=== PATIENT | male | born 1985 | race Caucasian/White ===

== ENCOUNTER 2021-01-03 18:31 | Emergency (ER) | payer OTHER ==
[2021-01-03 18:46] VITALS: BP 145/80
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
--- NOTE | 2021-01-03 19:26 | XRAY Report ---
PROCEDURE: Finger(s) RT INDICATIONS: Trauma TECHNIQUE: AP hand, 3 views of the right third finger(s) acquired. COMPARISON: None FINDINGS: Bones: No fractures or dislocations. No suspicious bony lesions. Soft tissues: No suspicious soft tissue calcifications. IMPRESSION: No fracture. No osseous lesion. If there are persistent symptoms or continued clinical concern for pa thology, then repeat plain film radiographs (7-10 days) or advanced imaging (CT, MR, bone scan) shoul d be considered for further evaluation. Reviewed by: Latrice Steiner MD, PhD on 01/03/2021 7:24 PM PDT Approved by: Latrice Steiner MD, PhD on 01/03/2021 7:24 PM PDT Station ID: [email or web address]
== END 2021-01-03 20:06 | disposition home or self-care (01) ==
LOC: ED 18:31
DX: S60.131A Contusion of right middle finger with damage to nail, initial encounter (principal); W23.0XXA Caught, crushed, jammed, or pinched between moving objects, initial encounter; Y93.89 Activity, other specified; Y99.0 Civilian activity done for income or pay
CPT/HCPCS: 11740; 99282; 99283

== ENCOUNTER 2022-08-19 19:51 | Emergency (ER) | payer OTHER ==
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
[2022-08-19 20:08] VITALS: BP 130/90
== END 2022-08-19 20:06 | disposition home or self-care (01) ==
LOC: ED 19:51
DX: T65.891A Toxic effect of other specified substances, accidental (unintentional), initial encounter (principal); T65.91XA Toxic effect of unspecified substance, accidental (unintentional), initial encounter
CPT/HCPCS: 99281; 99283

== ENCOUNTER 2023-01-20 08:52 | Outpatient (CLI) | payer OTHER ==
[2023-01-20 12:27] LABS: HCT - HEMATOCRIT 46.5 % (42.0-52.0); HGB - HEMOGLOBIN 16.4 g/dL (14.0-18.0); MEAN CORPUSCULAR HEMOGLOBIN 29.1 pg (27.0-31.0); MEAN CORPUSCULAR HGB CONC 35.3 g/dL (32.0-36.0); MEAN CORPUSCULAR VOLUME 82.4 fL (80.0-94.0); MEAN PLATELET VOLUME 9.6 fL (7.4-11.4); RED BLOOD COUNT 5.64 10^6/uL (4.70-6.10); RED CELL DISTRIBUTION WIDTH 12.8 % (12.0-15.0); WHITE BLOOD COUNT 11.4 x10^3/uL (4.8-10.8)
[2023-01-20 12:36] LABS: ESTIMATED AVERAGE GLUCOSE 97 mg/dL (70-100)
[2023-01-20 12:41] LABS: ALBUMIN 4.7 g/dL (3.2-5.5); ALBUMIN/GLOBULIN RATIO 1.3 (1.0-2.2); ALKALINE PHOSPHATASE 75 IU/L (42-121); ALT ALANINE AMINOTRANSFERASE 48 IU/L (10-60); AST ASPARTATE AMINOTRANSFERASE 60 IU/L (10-42); BUN - BLOOD UREA NITROGEN 12 mg/dL (6-20); CARBON DIOXIDE - CO2 30 mmol/L (21-32); CHLORIDE 103 mmol/L (101-111); CHOL/HDL RATIO 3.7 (<5.0); CHOLESTEROL 146 mg/dL; CREATININE 0.9 mg/dL (0.6-1.3); GFR - MDRD 96 (>89); GLUCOSE 105 mg/dL (74-104); HDL CHOLESTEROL 40 mg/dL; LDL CHOLESTEROL,CALCULATED 79 mg/dL; POTASSIUM 3.9 mmol/L (3.5-4.5); SODIUM 138 mmol/L (135-145); TOTAL PROTEIN 8.2 g/dL (6.4-8.9); TRIGLYCERIDES 133 mg/dL (48-352); VLDL CHOLESTEROL 27 mg/dL
[2023-01-20 12:53] LABS: THYROID STIMULATING HORMONE 3.81 uIU/mL (0.34-5.60)
== END 2023-01-20 08:53 | disposition home or self-care (01) ==
LOC: LAB.N 08:52
PROVIDERS: ATTEND Family Medicine
DX: R79.89 Other specified abnormal findings of blood chemistry (principal); E66.9 Obesity, unspecified; F43.10 Post-traumatic stress disorder, unspecified; F41.8 Other specified anxiety disorders
CPT/HCPCS: 36415; 80053; 80061; 83036; 83721; 84443; 85027